=== PATIENT | male | born 1995 | race Caucasian/White ===

== ENCOUNTER 2018-10-13 12:05 | Emergency (ER) | payer BC, SELFPAY ==
[2018-10-13 12:12] VITALS: BP 122/85; PULSE 77; RESP 16; TEMP 36.4; O2SAT 99
--- NOTE | 2018-10-13 12:14 | W.ED.GENAD ---
Discharge Plan Disposition Patient Disposition: HOME Condition: Good Discharge Details Chief Complaint: Laceration Clinical Impression: Laceration of left wrist Primary Care Provider: Natanael Mata ED Provider: Trey Chen Home Meds and New Rx's Prescriptions: No Action No Known Home Meds RF: 0 Discharge Instructions Additional Instructions: if redness spreads away from the wound or you have yellow/white discharge from the wound return to the emergency department return to the emergency department in 7 days to have the suture removed if the wound is dirty gently clean with soap and water Medical Decision Making 23 yo male was at work with sharp tool that he dropped, tried catching it and sustained 2cm laceration to the anterior left wrist. Has intact sensation and full rom of the wrist, bleeding controlled prior to arrival. No indications of tendon injury on exam. Will suture and d/c home Differential Diagnosis laceration, abrasion HPI General Mode of arrival: ambulatory. Date/Time Provider Initiated Documentation: 10/13/18 12:12. Limitations to Documentation: no limitations. Information obtained by: patient. History of Present Illness 23 year old M presents to the emergency department with the chief complaint of left wrist laceration, described as mild, with intensity rated at 2. Quality is described as aching, and is localized to the left and upper extremity. Patient started experiencing this hour(s) (1) and it has been constant. No relieving factors improve symptom(s), No exacerbating factors reported . Patient notes no other symptoms.. Related Data Home Medications Medication Instructions Recorded Confirmed Unknown [No Known Home Meds] 10/13/18 10/13/18 Allergies Allergy/AdvReac Type Severity Reaction Status Date / Time No Known Allergies Allergy Unverified 10/13/18 12:15 Review of Systems Review of Systems All systems reviewed & are unremarkable except as noted in HPI and below Constitutional Denies chills, Denies fever(s) and Denies weakness Cardiovascular Denies chest pain Gastrointestinal Denies abdominal pain, Denies nausea and Denies vomiting Genitourinary Denies dysuria Musculoskeletal Denies joint swelling Integumentary/Breasts Denies rash Neurologic Denies weakness [facility] Social History Smoking/Tobacco Use Status: Current every day Social History Smoking/Tobacco Use Status: Current every day Exam Const General: no acute distress Orientation: alert HENMT Head: normal to inspection Ears: external ears normal General nose exam: external nose normal Mouth: moist mucous membranes Eyes General: appearance normal, both eyes and all related structures Neck Neck: normal visual inspection Resp Effort & Inspection: normal respiratory effort and able to speak in complete sentences Cardio Rate: regular rate Skin General skin exam: no rashes or lesions noted Neuro General: alert and oriented x3 Psych Mental Status: mental status grossly normal Procedures Laceration Laceration 1: Site: upper extremity Side (If applicable): left Size (cm): 2 Description: linear Depth: simple, single layer Local Anesthetic: Lidocaine 1% Amount of anesthesia used (mL): 6 Pre-repair: wound explored and irrigated extensively Skin layer closed with: vicryl Size (cm): 5-0 Number of sutures: 2 Technique: simple, interrupted
--- NOTE | 2018-10-13 12:18 | ED.GENADUL_ITS ---
Discharge Plan Disposition Patient Disposition: HOME Condition: Good Discharge Details Chief Complaint: Laceration Clinical Impression: Laceration of left wrist Primary Care Provider: Natanael Mata ED Provider: Trey Chen Home Meds and New Rx's Prescriptions: No Action No Known Home Meds RF: 0 Discharge Instructions Additional Instructions: if redness spreads away from the wound or you have yellow/white discharge from the wound return to the emergency department return to the emergency department in 7 days to have the suture removed if the wound is dirty gently clean with soap and water Medical Decision Making 23 yo male was at work with sharp tool that he dropped, tried catching it and sustained 2cm laceration to the anterior left wrist. Has intact sensation and full rom of the wrist, bleeding controlled prior to arrival. No indications of tendon injury on exam. Will suture and d/c home Differential Diagnosis laceration, abrasion HPI General Mode of arrival: ambulatory . Date/Time Provider Initiated Documentation: 10/13/18 12:12 . Limitations to Documentation: no limitations . Information obtained by: patient . History of Present Illness 23 year old M presents to the emergency department with the chief complaint of left wrist laceration, described as mild, with intensity rated at 2. Quality is described as aching, and is localized to the left and upper extremity. Patient started experiencing this hour(s) (1) and it has been constant. No relieving factors improve symptom(s), No exacerbating factors reported . Patient notes no other symptoms.. Related Data Home Medications Medication Instructions Recorded Confirmed Unknown [No Known Home Meds] 10/13/18 10/13/18 Allergies Allergy/AdvReac Type Severity Reaction Status Date / Time No Known Allergies Allergy Unverified 10/13/18 12:15 Review of Systems Review of Systems All systems reviewed & are unremarkable except as noted in HPI and below Constitutional Denies chills, Denies fever(s) and Denies weakness Cardiovascular Denies chest pain Gastrointestinal Denies abdominal pain, Denies nausea and Denies vomiting Genitourinary Denies dysuria Musculoskeletal Denies joint swelling Integumentary/Breasts Denies rash Neurologic Denies weakness [facility] Social History Smoking/Tobacco Use Status: Current every day Social History Smoking/Tobacco Use Status: Current every day Exam Const General: no acute distress Orientation: alert HENMT Head: normal to inspection Ears: external ears normal General nose exam: external nose normal Mouth: moist mucous membranes Eyes General: appearance normal, both eyes and all related structures Neck Neck: normal visual inspection Resp Effort & Inspection: normal respiratory effort and able to speak in complete sentences Cardio Rate: regular rate Skin General skin exam: no rashes or lesions noted Neuro General: alert and oriented x3 Psych Mental Status: mental status grossly normal Procedures Laceration Laceration 1: Site: upper extremity Side (If applicable): left Size (cm): 2 Description: linear Depth: simple, single layer Local Anesthetic: Lidocaine 1% Amount of anesthesia used (mL): 6 Pre-repair: wound explored and irrigated extensively Skin layer closed with: vicryl Size (cm): 5-0 Number of sutures: 2 Technique: simple, interrupted
== END 2018-10-13 12:45 | disposition home or self-care (01) ==
PROVIDERS: Emergency Provider Emergency Medicine; PCP Specialist/Technologist Athletic Trainer
DX: S61.512A Laceration without foreign body of left wrist, initial encounter (principal); W26.0XXA Contact with knife, initial encounter; Y99.0 Civilian activity done for income or pay
CPT/HCPCS: 12001; 90471

== ENCOUNTER 2019-08-04 10:23 | Emergency (ER) | payer BC, SELFPAY ==
[2019-08-04 10:25] VITALS: BP 115/60; PULSE 55; RESP 16; TEMP 36.8; O2SAT 98
--- NOTE | 2019-08-04 11:33 | DI.RAD_ITS ---
EXAM: XR THUMB LT INDICATION: r/o fracture. COMPARISON: No exams were available for comparison TECHNIQUE: 2D digital imaging was performed. FINDINGS: Three views were obtained. No fracture seen. IMPRESSION:
--- NOTE | 2019-08-04 13:23 | ED.GENADUL_ITS ---
Discharge Plan Disposition Patient Disposition: HOME Condition: Good Discharge Details Chief Complaint: Laceration Clinical Impression: Laceration Primary Care Provider: Natanael Mata ED Provider: Elizabeth Ayala Home Meds and New Rx's Prescriptions: No Action No Known Home Meds RF: 0 Discharge Instructions Instructions: Laceration (ED) Additional Instructions: Leave initial dressing in place for 24 hours Wash area with soap and water once or twice daily. Pat dry completely thereafter. Apply topical antibiotic ointment in the dressing. Observe for any signs of infection. Suture removal in 10 to 14 days. Return for any worsening, concerns, signs of infection or alarming symptoms sooner if needed Medical Decision Making Very pleasant 24-year-old man presents for laceration to his thumb which she sustained while she rocking. Patient has a linear laceration without obvious deep extension. No signs of complication such as tendon injury or nerve injury. Wound managed appropriately and patient was discharged home. HPI General Date/Time Provider Initiated Documentation: 08/04/19 10:32 . HPI Narrative: Very pleasant 24-year-old patient presents to the emergency room for laceration to his left thumb. Patient sustained laceration with utility knife while working. 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 Patient denies numbness, tingling or weakness. Injury occurred prior to arrival. Patient's tetanus vaccine is up-to-date. Related Data Home Medications Medication Instructions Recorded Confirmed Unknown [No Known Home Meds] 10/13/18 08/04/19 Allergies Allergy/AdvReac Type Severity Reaction Status Date / Time No Known Allergies Allergy Unverified 08/04/19 10:29 General Stated Complaint: Laceration CARLOS: 3 Review of Systems Musculoskeletal Musculoskeletal: Denies numbness and Denies tingling Integumentary/Breasts Skin/Breast: Denies lesions, Denies erythema and Denies wounds Comments: Laceration Neurologic Neurologic: Denies numbness and Denies tingling [facility] Social History Smoking/Tobacco Use Status: Current every day Drug use: Daily Substance use type: does not use Do you feel safe in your relationship?: Yes Exam Narrative Exam Narrative: CONST: Healthy appearing patient, in no acute distress. Well hydrated. Alert and alert. MUSCULOSKELETAL: Normal Gait. FROM of all extremities. No bony pain with palpation. Flexion extension intact. Nothing to indicate tendon laceration. No obvious laxity of the thumb joint at the IP. SKIN: Normal. Dry. No rashes. Laceration present approximately 1.5 cm without evidence of deep extension. Distal neurovascularly intact. Sensation intact to two-point discrimination distally NEURO: Alert and awake. Speech clear. PSYCH: Normal affect. Cooperative. Course Vital Signs Vital signs: Vital Signs Temperature 36.8 C 08/04/19 10:25 Pulse 55 L 08/04/19 10:25 Respiratory Rate 16 08/04/19 10:25 Blood Pressure 115/60 08/04/19 10:25 Pulse Oximetry 98 08/04/19 10:25 Temperature 36.8 C 08/04/19 10:25 Temperature Source Skin 08/04/19 10:25 Pulse 55 L 08/04/19 10:25 Respiratory Rate 16 08/04/19 10:25 Respiratory Effort 08/04/19 10:35 Blood Pressure 115/60 08/04/19 10:25 Blood Pressure Position Sitting 08/04/19 10:25 Pulse Oximetry 98 08/04/19 10:25 Oxygen Delivery Method Room Air 08/04/19 10:25 Oxygen Flow Rate 0 08/04/19 10:25 Pain Level 4 08/04/19 10:25 Procedures Laceration Laceration 1: Site: hand Side (If applicable): left Size (cm): 1.5 Description: linear Depth: simple, single layer Local Anesthetic: Bupivicaine 0.5% Amount of anesthesia used (mL): 5 Pre-repair: wound explored, irrigated extensively and deep structures intact Skin layer closed with: other (Prolene) Size (cm): 4-0 Number of sutures: 3 Technique: simple, interrupted
[2019-08-04 13:30] VITALS: BP 115/60; PULSE 55; RESP 16; TEMP 36.8; O2SAT 98
== END 2019-08-04 13:33 | disposition home or self-care (01) ==
PROVIDERS: Emergency Provider Physician Assistant; PCP Specialist/Technologist Athletic Trainer
DX: S61.122A Laceration with foreign body of left thumb with damage to nail, initial encounter (principal); W26.0XXA Contact with knife, initial encounter
CPT/HCPCS: 12001; 99283; 73140; 99282

== ENCOUNTER 2019-08-08 09:16 | Outpatient (REF) | payer BC, SELFPAY ==
[2019-08-10 11:53] LABS: Helicobacter pylori Ag, Feces Negative (NEGAT)
[2019-08-10 12:22] LABS: Campylobacter PCR SEE COMMENTS; Salmonella PCR SEE COMMENTS; Shiga Toxin PCR SEE COMMENTS; Shigella/Enteroinvasive Ecoli SEE COMMENTS
== END 2019-08-08 09:36 ==
LOC: NCHCN 09:16
PROVIDERS: PCP Specialist/Technologist Athletic Trainer; Visit Provider Specialist/Technologist Athletic Trainer
DX: R19.7 Diarrhea, unspecified (principal)
CPT/HCPCS: 87329; 87338; 87505; 82272; 83630

== ENCOUNTER 2019-08-11 13:04 | Outpatient (REF) | payer BC, SELFPAY ==
[2019-08-11 20:51] LABS: Abs Immature Grans 0.02 k/cumm (0.0-0.09); Absolute Basophil Count 0.01 k/cumm (0.0-0.2); Absolute Eosinophil Count 0.11 k/cumm (0.0-0.7); Absolute Lymphocyte Count 1.94 k/cumm (1.2-3.4); Absolute Monocyte Count 0.45 k/cumm (0.11-0.7); Absolute Neutrophil Count 3.45 k/cumm (1.2-6.7); Basophils % 0.2; Eosinophils % 1.8; HCT 40.2 % (40.0-50.0); HGB 14.2 g/dL (13.5-17.5); Immature Grans % 0.3; Lymphocytes % 32.4; Mean Corp. HGB Concentration 35.3 g/dL (32.0-36.0); Mean Corpuscular Hemoglobin 30.5 pg (27.0-33.0); Mean Corpuscular Volume 86.3 fL (80-95); Mean Platelet Volume 10.4 fL (8.0-11.0); Monocytes % 7.5; Neutrophils % 57.8; Platelet Count 265 x1000/uL (130-400); RBC 4.66 m/cumm (4.50-6.00); RBC Distribution Width 11.7 % (11.8-14.1); White Blood Cell Count 5.98 k/cumm (4.4-10.8)
[2019-08-11 21:00] LABS: ALT 22 U/L (16-63); AST 13 U/L (15-37); Albumin 4.6 g/dL (3.4-5.0); Alkaline Phosphatase 58 U/L (46-116); Anion Gap 8.8 mmol/L (3-11); BUN 21 mg/dL (7-18); Bilirubin, Total 0.4 mg/dL (0.2-1.0); CO2 27.2 mmol/L (21.0-32.0); CREATININE 0.97 mg/dL (0.70-1.30); Calcium 8.8 mg/dL (8.5-10.1); Chloride 103 mmol/L (98-107); Glucose 90 mg/dL (70-100); Lipase 146 U/L (73-393); Potassium 4.2 mmol/L (3.5-5.1); Sodium 139 mmol/L (136-145); Total Protein 7.7 g/dL (6.4-8.2)
[2019-08-14 12:17] LABS: IgA 149 mg/dL (85-499); Interpretation SEE COMMENTS; Tissue Transglutaminase IgA <1.2 U/mL (<4.0)
== END 2019-08-11 13:24 ==
LOC: NCHCN 13:04
PROVIDERS: PCP Specialist/Technologist Athletic Trainer; Visit Provider Specialist/Technologist Athletic Trainer
DX: R19.7 Diarrhea, unspecified (principal)
CPT/HCPCS: 80053; 82784; 83516; 83690; 85025

== ENCOUNTER 2020-01-22 21:36 | Emergency (ER) | payer BC, SELFPAY ==
[2020-01-22 21:43] VITALS: BP 138/104; PULSE 71; RESP 18; TEMP 36.6; O2SAT 98
--- NOTE | 2020-01-22 21:51 | ED.GENADUL_ITS ---
Discharge Plan Disposition Patient Disposition: HOME Condition: Stable Discharge Details Chief Complaint: RespSymp Clinical Impression: URI (upper respiratory infection), Cough Primary Care Provider: Natanael Mata ED Provider: Vaibhav Khan Home Meds and New Rx's Prescriptions: New albuterol sulfate 90 mcg/actuation HFA aerosol inhaler 2 puff IH Q6H PRN (Reason: shortness of breath or wheezing) Qty: 8.5 RF: 0 Discharge Instructions Instructions: Upper Respiratory Infection (ED) Additional Instructions: Please drink plenty of fluids and allow for plenty of rest. Use albuterol inhaler as prescribed for wheezing or shortness of breath. Please contact your primary care physician to arrange follow-up. Return to the ER for any worsening or new concerning symptoms. Referrals: Natanael Mata [Primary Care Provider] - Discharge Data Discharge Date/Time-TO BE ENTERED AT DEPARTURE: 01/22/20 21:55 Medical Decision Making 25-year-old male smoker here with nonproductive cough for 2 days. No fevers. Patient is afebrile. He is saturating well in no respiratory distress with clear to auscultation throughout all lung cotton. Suspect upper respiratory tract infection. No indication for further diagnostic testing at this time. I recommended conservative management with maintaining adequate hydration and allowing for plenty of rest. I did discuss smoking cessation with the patient and provided counseling on this. Usual and customary discharge instructions were provided. HPI General Mode of arrival: ambulatory . Date/Time Provider Initiated Documentation: 01/22/20 21:51 . Limitations to Documentation: no limitations . Information obtained by: patient . HPI Narrative: 25-year-old male smoker presents with chief complaint of nonproductive cough for the past 2 days. Patient notes it feels like he has something dripping in his throat. Symptoms are mild. No modifiers. He denies associated fever. Patient denies any recent travel or significant COVID contacts. Patient is most concerned that he received a packet from [employer] a couple weeks ago and is worried that he may have been exposed. Related Data Home Medications Medication Instructions Recorded Confirmed albuterol sulfate 2 puff IH Q6H PRN #8.5 gm 01/22/20 Previous Rx's Medication Instructions Recorded albuterol sulfate 2 puff IH Q6H PRN #8.5 gm 03/16/20 Allergies Allergy/AdvReac Type Severity Reaction Status Date / Time No Known Allergies Allergy Unverified 01/22/20 21:48 General Stated Complaint: RespSymp CARLOS: 4 Review of Systems All systems reviewed & are unremarkable except as noted in HPI and below Constitutional Constitutional: Denies fever(s) Respiratory Respiratory: Reports as per HPI and Reports cough PFSH Social History Smoking/Tobacco Use Status: Current every day Tobacco Type: cigarettes Drug use: Daily Substance use type: marijuana Do you feel safe at home: Yes Do you feel safe in your relationship?: Yes Exam Const General: cooperative and no acute distress HENMT Mouth: moist mucous membranes Eyes Conjunctivae: normal conjunctivae Sclera: normal sclerae Neck Neck: trachea midline and supple Resp Auscultation: clear to auscultation bilaterally, no rales, no rhonchi and no wheezes Cardio Jugular venous pressure: no JVD Rate: regular rate and not tachycardic Rhythm: regular rhythm Skin General skin exam: no rashes or lesions noted Neuro General: patient alert, patient awake and tone normal Course Vital Signs Vital signs: Vital Signs Temperature 36.6 C 01/22/20 21:43 Pulse 71 01/22/20 21:43 Respiratory Rate 18 01/22/20 21:43 Blood Pressure 138/104 H 01/22/20 21:43 Pulse Oximetry 98 01/22/20 21:43 Temperature 36.6 C 01/22/20 21:43 Temperature Source Temporal Artery Scan 01/22/20 21:43 Pulse 71 01/22/20 21:43 Respiratory Rate 18 01/22/20 21:43 Respiratory Effort Non-Labored 01/22/20 21:46 Blood Pressure 138/104 H 01/22/20 21:43 Blood Pressure Position Sitting 01/22/20 21:43 Pulse Oximetry 98 01/22/20 21:43 Oxygen Delivery Method Room Air 01/22/20 21:43 Oxygen Flow Rate 0 01/22/20 21:43
== END 2020-01-22 21:55 | disposition home or self-care (01) ==
PROVIDERS: Emergency Provider Student in an Organized Health Care Education/Training Program; PCP Specialist/Technologist Athletic Trainer
DX: J06.9 Acute upper respiratory infection, unspecified (principal); R05 Cough; F17.210 Nicotine dependence, cigarettes, uncomplicated
CPT/HCPCS: 99283

== ENCOUNTER 2020-06-03 16:33 | Outpatient (REF) | payer BC, SELFPAY ==
[2020-06-03 21:37] LABS: Calculated LDL 101 mg/dL (<100); Cholesterol 165 mg/dL (<200); HDL Cholesterol 53 mg/dL (40-60); Triglyceride 55 mg/dL (<150)
== END 2020-06-03 16:53 ==
LOC: NCHCN 16:33
PROVIDERS: PCP Specialist/Technologist Athletic Trainer; Visit Provider Physician Assistant
DX: Z00.00 Encounter for general adult medical examination without abnormal findings (principal)
CPT/HCPCS: 80061

== ENCOUNTER 2024-01-06 10:06 | Outpatient (CLI) | payer OTHER, SELFPAY ==
--- NOTE | 2024-01-06 10:00 | RT.EKG_ITS ---
APPROVED REPORT Exam: Resting ECG Reason for Exam: chest discomfort Patient Location: O HR:67 bpm ECG Measurements Heart Rate 67 AXIS MI 141 P 55 QRSd 93 QRS 51 QT 392 T 22 QTc 414 Conclusion Sinus rhythm...normal P axis, V-rate 50- 99 Normal Electrocardiogram
== END 2024-01-06 10:07 | disposition home or self-care (01) ==
LOC: DI.CM 10:07
PROVIDERS: PCP Nurse Practitioner Family; Visit Provider Physician Assistant
DX: R07.89 Other chest pain (principal)
CPT/HCPCS: 93010

== ENCOUNTER 2024-01-06 18:17 | Outpatient (CLI) | payer OTHER, SELFPAY ==
[2024-01-06 12:27] LABS: Troponin I < 50 ng/L (< or =60)
[2024-01-06 12:42] LABS: D-Dimer 175 ng/mlFEU (<500)
[2024-01-06 15:24] LABS: HCT 44.5 % (40.0-50.0); HGB 15.1 g/dL (13.5-17.5); MCH 29.3 pg (27.0-33.0); MCHC 33.9 % (32.0-36.0); MCV 86 fL (80-95); MPV 9.1 fL (8.0-11.0); Platelet Count 265 10^3/uL (130-400); RBC 5.15 10^6/uL (4.36-5.78); RDW 11.9 % (11.8-14.1); RDW-SD 37.8 fL; WBC 10.26 10^3/uL (4.4-10.8)
== END 2024-01-06 18:18 | disposition home or self-care (01) ==
LOC: LBO 18:18
PROVIDERS: PCP Nurse Practitioner Family; Visit Provider Physician Assistant
DX: R07.89 Other chest pain (principal)
CPT/HCPCS: 36415; 85027; 84484; 85379

== ENCOUNTER → 2024-01-06 18:19 | Outpatient (CLI) | payer OTHER, SELFPAY ==
--- NOTE | 2024-01-06 11:15 | DI.RAD_ITS ---
Exam(s) XR CHEST 2V PA LATERAL EXAM: XR CHEST 2V PA LATERAL CLINICAL HISTORY: chest pressure R07.89 CHEST PAIN TECHNIQUE: 2D digital imaging was performed. COMPARISON: No exams were available for comparison FINDINGS: HEART: Normal size. Aorta: Not dilated. PULMONARY VASCULATURE: Normal. LUNGS: Clear. PLEURAL SPACE: No pleural effusion or pneumothorax. BONE:Unremarkable for age. Soft tissues: Unremarkable. IMPRESSION: No acute abnormality. DATA REPOSITORY: RADIATION DOSE DELIVERED:
== END ==
PROVIDERS: PCP Nurse Practitioner Family; Visit Provider Physician Assistant
DX: R07.89 Other chest pain (principal)
CPT/HCPCS: 71046

== ENCOUNTER 2024-05-16 18:15 | Outpatient (REF) | payer OTHER, SELFPAY ==
[2024-05-18 09:45] LABS: Hepatitis C Ab w Rflx HCV PCR Negative (Negative)
[2024-05-18 10:02] LABS: HIV-1/2 Ag & Ab Screen Negative (Negative)
== END 2024-05-16 18:16 | disposition home or self-care (01) ==
LOC: LBN 18:15
PROVIDERS: PCP Nurse Practitioner Family; Visit Provider Nurse Practitioner Family
DX: Z11.59 Encounter for screening for other viral diseases (principal); Z11.4 Encounter for screening for human immunodeficiency virus [HIV]
CPT/HCPCS: 86803; 87389